=== PATIENT | male | born 1960 | race Caucasian/White ===

== ENCOUNTER 2023-12-31 23:52 | Emergency (ER) | payer OTHER, SELFPAY ==
[2023-12-31 23:53] VITALS: BP 127/95
--- NOTE | 2024-01-01 02:06 | ED.GENMED ---
History of Present Illness
General
Chief Complaint: Dental Problem
Source: patient
Exam Limitations: none
Time Seen by Provider: 01/01/24 01:35
Travel History
Have you had any contact with someone who has COVID-19?: No
Do you have any symptoms of coronavirus? Fever > 100 degrees, chills, cough, shortness of breath, sore throat, loss of taste or smell, muscle aches, or headache?: No
History of Present Illness
History of Present Illness:
63-year-old male who presents complaining of right lower dental pain. Symptoms began 6-8 months ago. States he has seen his dentist but is supposed to get scheduled for root canal. Patient has not scheduled the root canal. Pain started acting up
today but he had a work today. He actually states the pain started acting up this week. No fevers or swelling.
Past History
Past History
ED Past Medical History: Hypercholesterolemia, NIDDM and Psychiatric (Depression)
ED Past Surgical History: Other (Noncontributory)
Social History
Tobacco: Non-smoker
Alcohol: Occasional
Drug: None
Personal:
Living: with family
Employment: Employed
Family History
Family History: Other (Noncontributory)
Phy Exam
Physical Exam
Physical Exam:
CONSTITUTIONAL Vital signs reviewed, Patient alert and oriented to person, place and time. Well-appearing
HEAD atraumatic, normocephalic.
EYES eyelids normal to inspection, Extraocular muscles intact, Conjunctiva normal, Sclera normal.
ENT right lower molar with minimal tenderness. No swelling.
NECK normal range of motion, Trachea midline, no jugular venous distention.
RESP no respiratory distress
BACK No obvious deformities
UPPER EXTREMITY Gross Range of motion normal, gross motor strength normal
LOWER EXTREMITY Gross range of motion normal, Gross motor strength normal
NEURO Speech normal, No focal motor deficits include, Isabela coma scale 15, Memory normal, Cranial Nerves intact to screening exam.
SKIN Skin warm, dry, and normal in color.
PSYCHIATRIC Patient oriented to person place and time, Normal affect.
Course
Orders/Labs/Results
Orders:
Orders
01/01/24 02:05
Amoxicillin 875 mg/Clav 125 mg [Augmentin 875 mg/125 mg] 1 tablet PO NOW STA
Vital Signs
Initial and Last Documented VS:
Initial Vital Signs
Pulse Resp BP Pulse Ox
93 20 127/95 99
12/31/23 23:53 12/31/23 23:53 12/31/23 23:53 12/31/23 23:53
Last Documented Vital Signs
Pulse Resp BP Pulse Ox
93 20 127/95 99
12/31/23 23:53 12/31/23 23:53 12/31/23 23:53 12/31/23 23:53
MDM/Problems Addressed
MDM/Problems Addressed:
Dental pain
*Pulse Oximetry
Patient hypoxic: no
*Critical Care Note
Total Time (30-74mins, 75-104mins- exclusive of procedures): Not Applicable
Data Reviewed
Prescriptions/Medications Considered But Not Given:
Considered Marcaine and lidocaine injection with dental block but patient prefers to avoid
Patient Management
Escalation/DeEscalation of care consider admission/obs:
Patient appears well. Outpatient follow-up recommended for root canal. Cover with antibiotics. Okay for discharge
ED Attending Note
-
Portions of this chart may have been created with voice recognition software.� Occasional wrong word or��sound alike� substitutions may have occurred due to the inherent limitations of voice recognition software.
Discharge Plan
Departure
Patient Disposition: Home (Routine Discharge)
Date of Disposition: 01/01/24
Time of Disposition: 02:09
Patient with high blood pressure during this ER visit?: Yes
Discharge Problem:
Pain, dental
Instructions: Dental Pain (DC), BLOOD PRESSURE
Prescriptions:
New
amoxicillin-pot clavulanate 875-125 mg tablet
1 tab PO BID Qty: 20 0RF
No Action
atorvastatin 80 MG tablet
80 mg PO DAILY
cetirizine 10 MG tablet
10 mg PO DAILY
lisinopril 10 MG tablet
10 mg PO DAILY
escitalopram oxalate 10 MG tablet
10 mg PO DAILY
dapagliflozin propanediol [Farxiga] 5 MG tablet
5 mg PO DAILY
cholecalciferol (vitamin D3) 5,000 UNIT tablet,disintegrating
10,000 unit PO DAILY
oseltamivir 75 MG capsule
75 mg PO BID Qty: 10 0RF
Referrals:
NONE,* [Family Provider] -
Juarez Suárez, MD [facility] [Active] -
Activity Restrictions/Additional Instructions:
Please follow-up with oral surgery. Return for facial swelling, fevers, intractable vomiting or pain, or any other concerns
Discharge Date and Time
Print Language: [id number]
[2024-01-01 02:27] VITALS: BMI 34.6
[2024-01-01] MEDS: AUGMENTIN 875 MG/125 MG 1 TABLET PO (02:30)
== END 2024-01-01 02:36 | disposition home or self-care (01) ==
LOC: EMR 23:52
PROVIDERS: EMERGENCY PHYSICIAN Emergency Medicine
DX: K08.89 Other specified disorders of teeth and supporting structures (principal); R03.0 Elevated blood-pressure reading, without diagnosis of hypertension; E11.9 Type 2 diabetes mellitus without complications; E78.00 Pure hypercholesterolemia, unspecified; F32.A Depression, unspecified
CPT/HCPCS: 99283